=== PATIENT | female | born 1965 | race Caucasian/White ===

== ENCOUNTER 2020-11-14 18:00 | Inpatient (IN) | payer SELFPAY ==
[~2020-11-14] VITALS: Ht 157.5 cm; Wt 88.2 kg
[~2020-11-14 18:00] MED LIST: ALBU90OI INH; ALBU90OI6 INH; FLUO20 PO; FLUSAL2505 IH; HYDACE5 PO; KETOTIFEN; LEVSOD150 PO; METCAR500 PO; MONT10T PO; PROCODE120 PO; ZOLP10 PO
[2020-11-14 20:27] LABS: BASOPHILS ABSOLUTE AUTO 0.05 K/mm3 (0.00-0.23); BASOPHILS PERCENT AUTO 0 % (0-2); EOSINOPHILS ABSOLUTE AUTO 0.07 K/mm3 (0.00-0.68); EOSINOPHILS PERCENT AUTO 0 % (0-6); Hematocrit 36.7 % (33.0-51.0); Hemoglobin 12.1 g/dL (11.5-16.0); IMMATURE GRAN ABSOLUTE AUTO 0.07 K/mm3 (0.00-0.10); IMMATURE GRAN PERCENT AUTO 0 % (0-1); LYMPHOCYTES ABSOLUTE AUTO 2.32 K/mm3 (0.84-5.20); LYMPHOCYTES PERCENT AUTO 13 % (21-46); MONOCYTES ABSOLUTE AUTO 1.27 K/mm3 (0.16-1.47); MONOCYTES PERCENT AUTO 7 % (4-13); Mean Corpuscular HGB 29.4 pg (26.0-34.0); Mean Corpuscular Volume 89 fL (80-100); NEUTROPHILS ABSOLUTE AUTO 14.61 K/mm3 (1.96-9.15); NEUTROPHILS PERCENT AUTO 79 % (41-73); Platelet Count 305 K/mm3 (150-400); RDW Coefficient Variation 14.9 % (11.7-14.2); RDW Standard Deviation 49.2 fL (35.1-46.3); Red Blood Cell Count 4.12 M/mm3 (3.80-5.20); White Blood Cell Count 18.39 K/mm3 (4.00-11.30)
[2020-11-14 20:42] LABS: Alanine Aminotransfer (ALT/SGP 30 U/L (12-78); Albumin, Blood 3.1 g/dL (3.4-5.0); Albumin/Globulin Ratio 0.6 (0.8-1.8); Alk Phos 94 U/L (50-136); Anion Gap 8 mmol/L (6-16); Aspartate Aminotrans (AST/SGOT 33 U/L (12-37); Bilirubin, Total 0.8 mg/dL (0.1-1.0); Blood Urea Nitrogen 13 mg/dL (8-24); Bun/Creatinine Ratio 18.6 (12.0-20.0); CO2, Blood 30 mmol/L (21-32); Calcium, Blood 5.9 mg/dL (8.5-10.1); Chloride, Blood 98 mmol/L (98-108); Globulin, Blood 4.8 g/dL (2.2-4.0); Glomerular Filtration Rate >60 (60-); Glucose, Blood 97 mg/dL (70-99); Potassium, Blood 3.7 mmol/L (3.5-5.5); Sodium, Blood 136 mmol/L (136-145); Total Protein, Blood 7.9 g/dL (6.4-8.2)
[2020-11-14] MEDS ORDERED: Prozac20 MG PO (21:25)
[2020-11-14] MEDS ORDERED: CYCL10 PO (21:25)
[2020-11-15 05:07] LABS: BASOPHILS ABSOLUTE AUTO 0.05 K/mm3 (0.00-0.23); BASOPHILS PERCENT AUTO 0 % (0-2); EOSINOPHILS ABSOLUTE AUTO 0.14 K/mm3 (0.00-0.68); EOSINOPHILS PERCENT AUTO 1 % (0-6); Hematocrit 36.7 % (33.0-51.0); Hemoglobin 11.9 g/dL (11.5-16.0); IMMATURE GRAN ABSOLUTE AUTO 0.06 K/mm3 (0.00-0.10); IMMATURE GRAN PERCENT AUTO 0 % (0-1); LYMPHOCYTES ABSOLUTE AUTO 3.36 K/mm3 (0.84-5.20); LYMPHOCYTES PERCENT AUTO 19 % (21-46); MONOCYTES ABSOLUTE AUTO 1.15 K/mm3 (0.16-1.47); MONOCYTES PERCENT AUTO 7 % (4-13); Mean Corpuscular HGB 29.3 pg (26.0-34.0); Mean Corpuscular HGB Conc 32.4 g/dL (31.5-36.5); Mean Corpuscular Volume 90 fL (80-100); Mean Platelet Volume 10.9 fL (9.1-12.4); NEUTROPHILS ABSOLUTE AUTO 12.88 K/mm3 (1.96-9.15); NEUTROPHILS PERCENT AUTO 73 % (41-73); Platelet Count 296 K/mm3 (150-400); RDW Coefficient Variation 14.9 % (11.7-14.2); RDW Standard Deviation 50.1 fL (35.1-46.3); Red Blood Cell Count 4.06 M/mm3 (3.80-5.20); White Blood Cell Count 17.64 K/mm3 (4.00-11.30)
[2020-11-15 05:39] LABS: Anion Gap 9 mmol/L (6-16); Blood Urea Nitrogen 13 mg/dL (8-24); Bun/Creatinine Ratio 18.6 (12.0-20.0); CO2, Blood 30 mmol/L (21-32); Calcium, Blood 6.2 mg/dL (8.5-10.1); Chloride, Blood 98 mmol/L (98-108); Glomerular Filtration Rate >60 (60-); Glucose, Blood 107 mg/dL (70-99); Phosphorus, Blood 7.2 mg/dL (2.5-4.9); Potassium, Blood 3.3 mmol/L (3.5-5.5); Sodium, Blood 137 mmol/L (136-145)
--- NOTE | 2020-11-15 06:22 | NUR ---
SHIFT SUMMARY: OMAR WAS ADMITTED LAST NIGHT AROUND MIDNIGHT. ARRIVED TO FLOOR VIA GURNEY BUT TRANSFERRED SELF TO BED. AOX3, INDEPENDENT. STATES SHE NOTICED SHE DEVELOPED TO BOILS IN HER RIGHT AXILLARY ON THURSDAY, BY THURSDAY SHE WAS THROWING UP, SHE READ ONLINE TO APPLY MOIST WARM COMPRESS WHICH SHE DID BUT IT STILL WAS GETTING WORSE SO SHE CAME IN. ASSESSMENT BENIGN OTHER THEN RIGHT AXILLARY IS RED, SWOLLEN, WITH 5X5 SURROUNDING INDURATION. SHE HAS 2 BOILS BOTH DRAINING, THE LOWER ONE DRAINING MORE THEN UPPER. DRAINAGE IS PUS. VERY TENDER AND PAINFUL TO MOVE. CLEANSED AREA, PICS TOOKEN AND IN CHART, EXUDRY APPLIED AND TAPED TO SECURE. NORCO FOR PAIN. ON CALCIUM DRIP DUE TO LOW CA OF 6.2. OTHER LABS IS WBC 17.64, TSH 19.8, VITAMIN D 20, AND POTASSIUM 3.3. HAS HISTORY OF THYROIDECTOMY BUT HAS NOT BEEN TAKING HER CALCIUM AT HOME. GOOD APPETITE. VS WNL, AFEBRILE. CALL LIGHT IS IN REACH.
--- NOTE | 2020-11-15 13:10 | NUR ---
PT RECIEVED CALCIUM GLUCONATE RIDER THIS MORNING. PT TOOK SHOWER THIS AFTERNOON, DRESSING TO L AUXILLARY REPLACED POST SHOWER. REPORT GIVEN TO ANTIONE CABRERA.
--- NOTE | 2020-11-15 18:12 | NUR ---
PATIENT IS ALERT AND ORIENTED AND COOPERATIVE WITH CARE. DR. REICH SAW THE PATIENT THIS AFTERNOON. PLAN IS FOR I&D TOMORROW. PATIENT CALLS APPROPRIATELY. C/O NAUSEA AND VOMITTING THIS AFTERNOON, MEDICATED PER EMAR. C/O AXILLARY PAIN, MEDICATED PER EMAR. WILL CONTINUE TO MONITOR
--- NOTE | 2020-11-16 04:47 | NUR ---
SHIFT SUMMARY: VSS, PAIN WELL CONTROLED WITH NORCO. NPO SINCE MIDNIGHT FOR I&D TODAY. IV ABX ADMIN. PER OCT.
--- NOTE | 2020-11-16 04:54 | NUR ---
SHIFT SUMMARY: NO NEUROLOGICAL DEFICITS OBSERVED.PATIENT CONVERTED TO A FLUTTER ON TELI. VSS, PATIENT WAS A SYMPTOMATIC. THEN CONVERTED BACK TO SR WITHOUT INTERVENTION. DR JUNG WAS NOTIFIED, NO NEW ORDERS CONTINUE TO MONITOR. INDEPENDANT IN THE ROOM.
[2020-11-16 05:08] LABS: BASOPHILS ABSOLUTE AUTO 0.08 K/mm3 (0.00-0.23); BASOPHILS PERCENT AUTO 1 % (0-2); EOSINOPHILS ABSOLUTE AUTO 0.27 K/mm3 (0.00-0.68); EOSINOPHILS PERCENT AUTO 2 % (0-6); Hematocrit 39.8 % (33.0-51.0); Hemoglobin 12.9 g/dL (11.5-16.0); IMMATURE GRAN ABSOLUTE AUTO 0.05 K/mm3 (0.00-0.10); IMMATURE GRAN PERCENT AUTO 0 % (0-1); LYMPHOCYTES ABSOLUTE AUTO 2.65 K/mm3 (0.84-5.20); LYMPHOCYTES PERCENT AUTO 22 % (21-46); MONOCYTES ABSOLUTE AUTO 0.82 K/mm3 (0.16-1.47); MONOCYTES PERCENT AUTO 7 % (4-13); Mean Corpuscular HGB 29.6 pg (26.0-34.0); Mean Corpuscular HGB Conc 32.4 g/dL (31.5-36.5); Mean Corpuscular Volume 91 fL (80-100); Mean Platelet Volume 11.2 fL (9.1-12.4); NEUTROPHILS ABSOLUTE AUTO 8.03 K/mm3 (1.96-9.15); NEUTROPHILS PERCENT AUTO 67 % (41-73); Platelet Count 324 K/mm3 (150-400); RDW Coefficient Variation 14.6 % (11.7-14.2); RDW Standard Deviation 49.5 fL (35.1-46.3); Red Blood Cell Count 4.36 M/mm3 (3.80-5.20)
[2020-11-16 05:27] LABS: Albumin, Blood 2.7 g/dL (3.4-5.0); Anion Gap 6 mmol/L (6-16); Blood Urea Nitrogen 11 mg/dL (8-24); Bun/Creatinine Ratio 17.3 (12.0-20.0); CO2, Blood 34 mmol/L (21-32); Calcium, Blood 7.7 mg/dL (8.5-10.1); Chloride, Blood 99 mmol/L (98-108); Creatinine, Blood 0.64 mg/dL (0.40-1.00); Glomerular Filtration Rate >60 (60-); Glucose, Blood 96 mg/dL (70-99); Phosphorus, Blood 5.8 mg/dL (2.5-4.9); Potassium, Blood 3.9 mmol/L (3.5-5.5); Sodium, Blood 139 mmol/L (136-145)
[2020-11-16 11:23] LABS: Influenza A, PCR NEGATIVE (NEGATIVE); Influenza B, PCR NEGATIVE (NEGATIVE); Resp Syncytial Virus, PCR NEGATIVE (NEGATIVE); SARS-Cov-2 (COVID-19) PCR, MMC NEGATIVE (NEGATIVE)
--- NOTE | 2020-11-16 14:34 | NUR ---
History, Chart, Medications and Allergies reviewed before start of procedure. Lungs clear T/O to Auscultation. Patient confirms NPO status and agrees with scheduled surgery. Pre-Op teaching done. Pt verbalizes understanding.
--- NOTE | 2020-11-16 15:15 | NUR ---
ASSUMED CARE OF PATIENT FROM LORNA TALBOT AT 1420. AWAITING SURGERY
--- NOTE | 2020-11-16 18:10 | NUR ---
SHIFT SUMMARY. A&OX4, ON BEDREST ALTHOUGH WAS ABLE TO ASSIST PT TO BSC WITH HOME ROUTINE. DIALYSIS COMPLETED TODAY. LOWER BACK PAIN MANAGED WELL WITH CURRENT ORDERS. NO N/V, SOB. BLOOD CULTURES POSITIVE, AWAITING FINAL RESULT, MD AWARE. AT BEDSIDE THIS AFTERNOON. NO OTHER CHANGES OR CONCERNS.
--- NOTE | 2020-11-16 18:18 | NUR ---
SHIFT SUMMARY. A&OX4, INDEPENDENT IN ROOM, PLEASANT AND APPROPRIATE WITH CARE. I&D TO L AUXILLARY COMPLETED THIS AFTERNOON, PT TOLERATED WELL. MINIMAL SANGANIOUS DRAINAGE ON EXUDRY PLACED AFTER PROCEDURE. PAIN TO L AUXILLARY MANAGED WELL WITH CURRENT ORDERS. NO N/V OR SOB. ABCESS CULTURE RESULTS REVEALED MRSA, PT PLACED IN CONTACT ISOLATION, NOTIFIED, IV ABX CHANGED. DAUGHTER IN TO VISIT THIS AFTERNOON. NO OTHER CHANGES OR CONCERNS.
--- NOTE | 2020-11-17 04:55 | NUR ---
SHIFT SUMMARY ASSUMED CARE OF PT AT 1900. PT IS A/OX4. HEART SOUNDS REGULAR, LUNG SOUNDS CLEAR. PT IS INDEPENDENT TO BATHROOM. PT HAS EXUDRY ON R ARMPIT AFTER I&D THIS EVENING. THERE IS LITTLE DRAINAGE. PT C/O PAIN, MEDICATED PER EMAR. CALL LIGHT IN REACH, BED IN LOWEST POSITION.
[2020-11-17 05:13] LABS: Hematocrit 35.9 % (33.0-51.0); Hemoglobin 11.7 g/dL (11.5-16.0); Mean Corpuscular HGB 29.3 pg (26.0-34.0); Mean Corpuscular HGB Conc 32.6 g/dL (31.5-36.5); Mean Corpuscular Volume 90 fL (80-100); Mean Platelet Volume 11.1 fL (9.1-12.4); Platelet Count 359 K/mm3 (150-400); RDW Coefficient Variation 14.3 % (11.7-14.2); RDW Standard Deviation 47.8 fL (35.1-46.3); Red Blood Cell Count 3.99 M/mm3 (3.80-5.20); White Blood Cell Count 12.19 K/mm3 (4.00-11.30)
[2020-11-17 05:40] LABS: Albumin, Blood 2.7 g/dL (3.4-5.0); Anion Gap 4 mmol/L (6-16); Blood Urea Nitrogen 8 mg/dL (8-24); CO2, Blood 35 mmol/L (21-32); Calcium, Blood 7.7 mg/dL (8.5-10.1); Chloride, Blood 98 mmol/L (98-108); Creatinine, Blood 0.67 mg/dL (0.40-1.00); Glomerular Filtration Rate >60 (60-); Glucose, Blood 100 mg/dL (70-99); Phosphorus, Blood 5.5 mg/dL (2.5-4.9); Potassium, Blood 4.3 mmol/L (3.5-5.5); Sodium, Blood 137 mmol/L (136-145)
[2020-11-17] MEDS ORDERED: TUMS500 MG PO (13:38)
[2020-11-17] MEDS ORDERED: CALC.25 PO (13:38)
[2020-11-17] MEDS ORDERED: SULTRIDS PO (13:39)
--- NOTE | 2020-11-17 14:33 | NUR ---
NO ACUTE EVENTS THIS SHIFT, NO DISCHARGE NOTED FROM WOUND SITE. PATIENT IS ALERT AND ORIENTED, VSS. INDEPENDENT IN ROOM, AGREEABLE FOR DISCHARGE. PATIENT PROVIDED DISCHARGE INFO REGARDING FOLLOW UP PLANS, REASONS TO RETURN TO THE HOSPITAL, AND MEDICATION INFORMATION. PATIENT PROVIDED DETAILED WOUND CARE BY DR. REICH WITH THIS RN PRESENT, THIS RN PROVIDED PATIENT WITH WOUND CARE SUPPLIES TO USE AT HOME. PATIENT VERBALIZED UNDERSTANDING, LEFT VIA WHEELCHAIR TO PERSONAL VEHICLE.
[2020-12-30] MEDS ORDERED: Cleocin HCl300 MG PO (20:54)
== END 2020-11-17 14:23 | disposition home or self-care (01) | DRG 603 ==
LOC: ER 18:00 → MEDS 18:01
PROVIDERS: Internal Medicine; Physician Assistant; Surgery; ADMIT Internal Medicine
PROC: 0X950ZZ Drainage of Left Axilla, Open Approach (ICD-10-PCS; principal; 2020-11-16 14:30)
DX: L02.412 Cutaneous abscess of left axilla (principal); L03.112 Cellulitis of left axilla; E83.51 Hypocalcemia; E87.6 Hypokalemia; E03.9 Hypothyroidism, unspecified; J45.909 Unspecified asthma, uncomplicated; Z85.850 Personal history of malignant neoplasm of thyroid; Z88.8 Allergy status to other drugs, medicaments and biological substances; Z88.0 Allergy status to penicillin; Z88.1 Allergy status to other antibiotic agents; L73.2 Hidradenitis suppurativa; Z20.822 Contact with and (suspected) exposure to COVID-19; F32.9 Major depressive disorder, single episode, unspecified; B19.20 Unspecified viral hepatitis C without hepatic coma; Z87.891 Personal history of nicotine dependence; Z79.899 Other long term (current) drug therapy
CPT/HCPCS: 0241U; 36415; 76882; 80048; 80053; 80069; 82306; 82310; 82330; 83605; 83735; 84100; 84439; 84443; 85025; 85027; 87070; 87075; 87077; 87147; 87186; 87205; 93005; 93010; 94760; 96372; 96374; 96375; 96376; 99285-25; A9270; G0008; G0378; J0610; J0690; J1100; J1170; J1650; J2250; J2405; J2704; J3010; J3370; J7050; J7070; J7120; Q2038

== ENCOUNTER → 2021-09-06 | Outpatient (CLI) | payer OTHER ==
[~2021-09-06] MED LIST changes: +Bactrim Ds Tab1 EACH PO; +CALC.25 PO; +CYCL10 PO; +Cleocin HCl300 MG PO; +Prozac20 MG PO; +SULTRIDS PO; +TUMS500 MG PO
[2021-09-06 13:41] LABS: Magnesium, Blood 1.8 mg/dL (1.6-2.4)
[2021-09-06 13:54] LABS: Anion Gap 4 mmol/L (6-16); Blood Urea Nitrogen 18 mg/dL (8-24); CO2, Blood 34 mmol/L (21-32); Calcium, Blood 6.6 mg/dL (8.5-10.1); Chloride, Blood 99 mmol/L (98-108); Free Thyroxine 1.23 ng/dL (0.70-1.60); Glomerular Filtration Rate >60 (60-); Glucose, Blood 107 mg/dL (70-99); Potassium, Blood 4.2 mmol/L (3.5-5.5); Sodium, Blood 137 mmol/L (136-145)
== END | disposition home or self-care (01) ==
LOC: LAB SHORT 12:05
PROVIDERS: Physician Assistant
DX: E03.9 Hypothyroidism, unspecified (principal); R25.2 Cramp and spasm
CPT/HCPCS: 80048; 83735; 84439; 84443

== ENCOUNTER 2022-05-07 02:28 | Emergency (ER) | payer OTHER ==
[~2022-05-07] VITALS: Ht 162.6 cm; Wt 90.7 kg
[2022-05-07] MEDS ORDERED: Mupirocin22 GM TOP (04:33)
== END 2022-05-07 04:52 | disposition home or self-care (01) ==
LOC: ER 02:28
DX: S60.414A Abrasion of right ring finger, initial encounter (principal); W55.03XA Scratched by cat, initial encounter; J44.9 Chronic obstructive pulmonary disease, unspecified; E11.9 Type 2 diabetes mellitus without complications; Z88.0 Allergy status to penicillin; Z88.1 Allergy status to other antibiotic agents; Z88.8 Allergy status to other drugs, medicaments and biological substances; Z79.899 Other long term (current) drug therapy; Z23 Encounter for immunization
CPT/HCPCS: 90471; 90714; 99282-25

== ENCOUNTER → 2023-08-07 | Outpatient (CLI) | payer OTHER ==
[~2023-08-07] MED LIST changes: +ESTRADIOL CREAM VAG; +Hydroxyzine HCl50 MG PO; +Mupirocin22 GM TOP; +TIZA4 PO
[2023-08-07 15:59] LABS: Creatinine Urine 43.9 mg/dL (27.00-270.00)
== END | disposition home or self-care (01) ==
LOC: LAB 14:27 → LAB SHORT 14:27
PROVIDERS: Internal Medicine Endocrinology, Diabetes & Metabolism
DX: E89.2 Postprocedural hypoparathyroidism (principal)
CPT/HCPCS: 81050; 82340; 82570

== ENCOUNTER 2023-12-25 06:16 | Day surgery (SDC) | payer OTHER ==
[2023-12-25] VITALS (14 sets, daily range): BP systolic 100–121; BP diastolic 63–93
[~2023-12-25] VITALS: Ht 154.9 cm; Wt 97.2 kg
[~2023-12-25 06:16] MED LIST changes: +ANORO ELLIPTA1 EACH INH; +ATOR20 PO; +DOCU100 PO; +EUTHYROX88 MC1 PO; +HYDPAM50 PO; +Lactated Ringer's 1,000 ML IV SCH; +MAVYRET 100-401 EAC1 PO; +PREMARIN CREAM VAG; +Pepcid 20 mg Ta20 MG PO
[2023-12-25] MEDS ORDERED: Prozac40 MG PO (06:33)
[2023-12-25] MEDS ORDERED: Lidocaine 1%-Epineph 1:100000 20 ML MDV ONE (07:30)
[2023-12-25] MEDS ORDERED: Bupivacaine 0.5% HCl 5 MG/ML 30MLVIAL ONE (07:30)
[2023-12-25] MEDS ORDERED: propofoL 40 ML IV ONE (07:33)
--- NOTE | 2023-12-25 07:38 | NUR ---
PATIENT LEFT SINGLE TOE RING INTACT ON RIGHT FOOT TOE. WAIVER SIGNED. UPPER DENTURES REMOVED AND LEFT AT HOME. GLASSES BROUGHT TO PACU FOR SAFE KEEPING. PATIENT ARRANGED RIDE HOME WITH FRIEND.
[2023-12-25] MEDS ORDERED: propofoL 20 ML IV ONE (07:51)
[2023-12-25] MEDS ORDERED: FentaNYL Citrate 50 MCG/ML 2 ML Injection ONE (08:05)
[2023-12-25] MEDS ORDERED: SuccINYLCHOLINE Chloride 100 MG/5 ML 5MLSYR ONE (08:07)
[2023-12-25] MEDS ORDERED: Rocuronium Bromide 10 MG/ML 5ML Injection IV ONE (08:07)
[2023-12-25] MEDS ORDERED: Ondansetron HCl 2 MG / ML 2ML Vial ONE (08:07)
[2023-12-25] MEDS ORDERED: Phenylephrine HCl 100 MCG/ML-NS 10MLSYR (1MG/10ML) ONE (08:24)
[2023-12-25] MEDS ORDERED: Sugammadex Sodium 200 MG/2ML SDV (100 MG/ML) ONE (08:30)
[2023-12-25] MEDS ORDERED: Albuterol 2.5 MG/3 ML VIAL INH PRN (08:30)
[2023-12-25] MEDS ORDERED: FentaNYL Citrate 50 MCG/ML 2 ML Injection IV PRN (08:35)
[2023-12-25] MEDS ORDERED: Droperidol 5 mg/2 ml Vial IV PRN (08:35)
[2023-12-25] MEDS ORDERED: HYDROmorphone HCl/Pf 1MG SYR IV PRN (08:35)
[2023-12-25 09:50] LABS: Base Excess Venous 5.5 mmol/L; Bicarbonate Venous 27.9 mmol/L (24.0-30.0); PCO2 Venous 60.5 mmHg (38-42); pH Blood Venous 7.33 (7.34-7.37)
--- NOTE | 2023-12-25 10:44 | NUR ---
Discharge instructions reviewed with patient. Patient verbalizes understanding. Copy given to patient to take home. Patient States Post-Procedure ride home has been arranged. Discharged via wheelchair to private car for ride home. GLASSES RETURNED TO PT. BELONINGS BAG UNDER GURNEY RETURNED TO PT.
== END 2023-12-25 10:40 | disposition home or self-care (01) ==
LOC: ORSCMMR 06:16 → ORD 07:30 → ORSCMMR 07:30
PROVIDERS: Student in an Organized Health Care Education/Training Program; Surgery
PROC: 0DBQXZX Excision of Anus, External Approach, Diagnostic (ICD-10-PCS; principal; 2023-12-25 07:30)
PROC: 0DJD8ZZ Inspection of Lower Intestinal Tract, Via Natural or Artificial Opening Endoscopic (ICD-10-PCS; principal; 2023-12-25 07:30)
DX: Z12.11 Encounter for screening for malignant neoplasm of colon (principal); K64.4 Residual hemorrhoidal skin tags; K57.30 Diverticulosis of large intestine without perforation or abscess without bleeding; J44.9 Chronic obstructive pulmonary disease, unspecified; Z87.891 Personal history of nicotine dependence; E03.9 Hypothyroidism, unspecified; E66.01 Morbid (severe) obesity due to excess calories; Z68.41 Body mass index [BMI] 40.0-44.9, adult; F41.8 Other specified anxiety disorders; B19.20 Unspecified viral hepatitis C without hepatic coma; Z79.899 Other long term (current) drug therapy
CPT/HCPCS: 36415; 82803; 88304; 94660; J0330; J2371; J2405; J2704; J3010; J7120

== ENCOUNTER 2025-06-09 08:39 | Day surgery (SDC) | payer OTHER ==
[~2025-06-09] VITALS: Ht 157.5 cm; Wt 86.5 kg
[~2025-06-09 08:39] MED LIST changes: +BACL10 PO; +LEVSOD112 PO; -Lactated Ringer's 1,000 ML IV SCH; +NYSTATIN15 GM TOP; +Prozac40 MG PO
[2025-06-09] MEDS ORDERED: CeFAZolin Sodium 2,000 MG VIAL ONE (08:52)
[2025-06-09] MEDS ORDERED: FLUO10 PO (09:11)
[2025-06-09] MEDS ORDERED: CALCIUM CITRAT250 MG PO (09:12)
[2025-06-09] MEDS ORDERED: ALBU90OI INH (09:13)
[2025-06-09] MEDS ORDERED: TIZANIDINE HCL2 M2 (09:13)
[2025-06-09] MEDS ORDERED: ACET500 PO (09:15)
[2025-06-09] MEDS ORDERED: Ipratropium/Albuterol SulF 2.5-0.5MG/3 ML Amp ONE (09:36)
--- NOTE | 2025-06-09 09:46 | NUR ---
06/09/25 0946 Ирина Goodson VERBAL ORDER WAS RECEIVED FROM DR ROE AT 0909 FOR DUONEB TREATMENT IN PREOP DUE TO PRESENCE OF EXP WHEEZES TODAY.
[2025-06-09] MEDS ORDERED: FentaNYL Citrate 50 MCG/ML 2 ML Injection ONE (10:09)
[2025-06-09] MEDS ORDERED: Midazolam HCl 1MG / ML 2ML Vial ONE (10:09)
[2025-06-09] MEDS ORDERED: Bupivacaine 0.5% W/EPI 1:200000 SDV 30 ML Vial ONE (10:25)
[2025-06-09] MEDS ORDERED: ePHEDrine Sulfate 50 MG/ML 1ML Injection ONE (11:02)
--- NOTE | 2025-06-09 11:33 | NUR ---
06/09/25 1133 ISACC ADAME PT WOKE JUST AFTER DR ROE CHANGED LMA OUT FOR ORAL AIRWAY. PT WAS PLACED ON 10L O2 VIA FACE TENT PT WASN'T ABLE TO MAINTAIN O2 SAT
[2025-06-09] MEDS ORDERED: OxyCODONE 5 mg/Acetamin 325 mg TABLET ONE (12:05)
[2025-06-09 12:16] VITALS: BP 107/71
[2025-06-09] MEDS ORDERED: Ketorolac Tromethamine 30mg Vial ONE (12:23)
[2025-06-09] MEDS ORDERED: Ondansetron HCl 2 MG / ML 2ML Vial ONE (12:23)
--- NOTE | 2025-06-09 12:41 | NUR ---
06/09/[address] IN TO CHECK ON PT. ISSUES WITH O2 MAINTAINING. UNABLE TO MAINTAIN WO OXYGEN SUPPLEMENT. WAS ON 3L BUT WILLL TRIAL TO 2L PT IS VERY EAGER TO GO HOME PT IS ABLE TO USE THE INCENT. SPIROM VERY WELL.
== END 2025-06-09 13:20 | disposition home or self-care (01) ==
LOC: ORSCSDS 08:39
PROVIDERS: Orthopaedic Surgery
PROC: 0SBC4ZZ Excision of Right Knee Joint, Percutaneous Endoscopic Approach (ICD-10-PCS; principal; 2025-06-09 10:30)
DX: S83.231A Complex tear of medial meniscus, current injury, right knee, initial encounter (principal); M17.11 Unilateral primary osteoarthritis, right knee; I10 Essential (primary) hypertension; E78.5 Hyperlipidemia, unspecified; E03.9 Hypothyroidism, unspecified; Z79.899 Other long term (current) drug therapy; J45.909 Unspecified asthma, uncomplicated; F41.9 Anxiety disorder, unspecified
CPT/HCPCS: 82947; A9270; J0166; J0690; J1885; J2250; J2405; J2704; J3010; J7120